=== PATIENT | female | born 1995 | race Caucasian/White ===

== ENCOUNTER 2018-08-21 01:01 | Emergency (ER) | payer BC ==
[2018-08-21] MEDS ORDERED: ACETAMINOPHEN 325 MG TABLET PO ONE (02:30)
[2018-08-21] MEDS ORDERED: IBUPROFEN 600 MG TABLET PO ONE (02:30)
--- NOTE | 2018-08-21 03:30 | RADIOLOGY REPORT (SQ) ---
EXAM DESCRIPTION: XR FOOT 3 OR MORE VIEWS COMPLETED DATE/TME: 08/21/2018 02:30 CLINICAL HISTORY: 22 years Female, crush injury COMPARISON: None. Findings: Bones, joints, and soft tissues of the RIGHT XR FOOT 3 OR MORE VIEWS appear intact. IMPRESSION: No acute findings.
--- NOTE | 2018-08-21 03:38 | ER Document Report ---
ED General - General Chief Complaint: Foot Injury Stated Complaint: FOOT INJURY Time Seen by Provider: 08/21/18 02:30 Notes: Patient is a 22-year-old female without chronic medical problems who presents with pain to her right foot. States that kari was dropped on top of her right foot while at a concert earlier tonight. States that she had an immediate onset of severe, throbbing, constant pain to the mid dorsum of the right foot and that pain is continued since that time. Walking worsens the pain. Nothing improves the pain. No history of similar injury to the past. Injury to any other location. Has not seen her primary care doctor regarding today's concerns. TRAVEL OUTSIDE OF THE [place] IN LAST 30 DAYS: No Past Medical History - General Information source: Patient - Social History Smoking Status: Never Smoker Chew tobacco use (# tins/day): No Frequency of alcohol use: None Drug Abuse: None Lives with: Spouse/Significant other Family History: Reviewed & Not Pertinent Patient has suicidal ideation: No Patient has homicidal ideation: No Neurological Medical History: Reports: Hx Seizures Renal/ Medical History: Denies: Hx Peritoneal Dialysis Past Surgical History: Reports: Hx Tonsillectomy Review of Systems - Review of Systems Notes: Constitutional: Negative for fever. Eyes: Negative for visual changes. ENT: Negative for facial injury Cardiovascular: Negative for chest injury. Respiratory: Negative for shortness of breath. Gastrointestinal: Negative for abdominal injury. Genitourinary: Negative for genital injury Musculoskeletal: Positive for right foot injury Skin: Negative for laceration/abrasions. Neurological: Negative for head injury. Physical Exam - Vital signs Vitals: Temp Pulse Resp BP Pulse Ox 98.6 F 88 17 126/81 H 100 08/21/18 02:19 08/21/18 02:19 08/21/18 02:19 08/21/18 02:19 08/21/18 02:19 Interpretation: Normal Notes: PHYSICAL EXAMINATION: GENERAL: Well-appearing, well-nourished and in no acute distress. HEAD: Atraumatic, normocephalic. EYES: sclera anicteric, conjunctiva are normal. ENT: Moist mucous membranes. NECK: Normal range of motion LUNGS: Normal work of breathing HEART: 2+ DP pulses bilaterally EXTREMITIES: Ecchymosis as below. Full dorsi and plantar flexion at all digits of the right foot as well as at the right ankle NEUROLOGICAL: No focal neurological deficits. Moves all extremities spontaneously and on command. PSYCH: Normal mood, normal affect. SKIN: Warm, Dry, normal turgor, traumatic ecchymosis approximately 1 x 2 cm in size over the mid dorsum of the right foot Course - Re-evaluation Re-evalutation: 08/21/18 03:36 Patient presents with traumatic ecchymosis over the dorsum of the right foot from a blunt trauma to the area. X-ray without any evidence of underlying fracture. Full dorsi and plantar flexion of all digits of the right foot as well as of the ankle. No additional injuries or concerns. 2+ DP pulse. Capillary refill less than 1 second in all digits of the affected foot. At this time will discharge with return precautions and follow-up recommendations. Verbal discharge instructions given a the bedside and opportunity for questions given. Medication warnings reviewed. Patient is in agreement with this plan and has verbalized understanding of return precautions and the need for primary care follow-up in the next 24-72 hours. - Vital Signs Vital signs: Temp Pulse Resp BP Pulse Ox 98.6 F 88 17 126/81 H 100 08/21/18 02:19 08/21/18 02:19 08/21/18 02:19 08/21/18 02:19 08/21/18 02:19 - Diagnostic Test Radiology reviewed: Image reviewed, Reports reviewed Radiology results interpreted by me: 08/21/18 03:37 Right foot x-ray: No acute fracture or dislocation Discharge - Discharge Clinical Impression: Right foot injury Qualifiers: Encounter type: initial encounter Qualified Code(s): S99.921A - Unspecified injury of right foot, initial encounter Traumatic ecchymosis of right foot Qualifiers: Encounter type: initial encounter Qualified Code(s): S90.31XA - Contusion of right foot, initial encounter Condition: Good Disposition: HOME, SELF-CARE Additional Instructions: Your x-ray does not show any acute fracture today. You do have a soft tissue injury with associated bruising. You should continue to take anti- inflammatories such as ibuprofen 600 mg every 6 hours. Continue to apply ice to the area is much your able. Please follow-up with your primary care physician if you do not have improving your symptoms in the next 1-2 weeks. Please return immediately if you develop weakness, numbness, spreading redness from the area, or any other symptoms that are concerning to you.
[2018-08-21 04:19] VITALS: BP 120/76
== END 2018-08-21 04:19 | disposition home or self-care (01) ==
LOC: ER 01:01
DX: S90.31XA Contusion of right foot, initial encounter (principal); M79.671 Pain in right foot; W20.8XXA Other cause of strike by thrown, projected or falling object, initial encounter
CPT/HCPCS: 99283